=== PATIENT | male | born 1955 | race Caucasian/White ===

== ENCOUNTER → 2016-09-24 | Outpatient (CLI) | payer OTHER ==
[~2016-09-24] MED LIST: GADOBUTROL 10 MMOL/10 ML VIAL ONE; METF10002 PO; ROSU20TA PO; TELM1TAB3 PO; WARF7.5T6 PO
== END | disposition home or self-care (01) ==
LOC: CFH 08:14
PROVIDERS: ATTEND Family Medicine
DX: Z01.818 Encounter for other preprocedural examination (principal); D41.00 Neoplasm of uncertain behavior of unspecified kidney; K80.20 Calculus of gallbladder without cholecystitis without obstruction; N28.89 Other specified disorders of kidney and ureter; Q63.1 Lobulated, fused and horseshoe kidney; D18.03 Hemangioma of intra-abdominal structures; K86.89 Other specified diseases of pancreas; D73.4 Cyst of spleen
CPT/HCPCS: 71020; 74183; A9585

== ENCOUNTER → 2017-03-22 | Outpatient (CLI) | payer OTHER | LOC: RAD 10:57 | PROVIDERS: ATTEND Urology | DX: N28.89 Other specified disorders of kidney and ureter (principal); K80.20 Calculus of gallbladder without cholecystitis without obstruction; D18.03 Hemangioma of intra-abdominal structures; D73.4 Cyst of spleen; K76.89 Other specified diseases of liver | CPT/HCPCS: 74183; A9585 ==

== ENCOUNTER → 2019-04-10 | Outpatient (CLI) | payer OTHER ==
[~2019-04-10] MED LIST changes: -GADOBUTROL 10 MMOL/10 ML VIAL ONE; +OMNIPAQUE 350 MG/ML, 100ML BOTTLE ONE; -ROSU20TA PO; +ROSU20TA2 PO; +WARF7.5T46 PO; -WARF7.5T6 PO
== END | disposition home or self-care (01) ==
LOC: CFH 11:42
PROVIDERS: ATTEND Family Medicine
DX: D18.03 Hemangioma of intra-abdominal structures (principal); R12 Heartburn; K80.20 Calculus of gallbladder without cholecystitis without obstruction; M47.816 Spondylosis without myelopathy or radiculopathy, lumbar region; J98.4 Other disorders of lung; Z79.01 Long term (current) use of anticoagulants; Z80.0 Family history of malignant neoplasm of digestive organs; Z86.010 Personal history of colon polyps
CPT/HCPCS: 74170; 82565; Q9967

== ENCOUNTER 2020-05-09 14:56 | Outpatient (CLI) | payer OTHER ==
[~2020-05-09 14:56] MED LIST changes: -OMNIPAQUE 350 MG/ML, 100ML BOTTLE ONE
[2020-05-09] MEDS ORDERED: glipizide PO (15:18)
[2020-05-09] MEDS ORDERED: SITA100T PO (15:18)
[2020-05-09] MEDS ORDERED: lovenox SC (16:35)
[2020-05-09 16:46] LABS: MICROSCOPIC NOT IND
[2020-05-09 16:55] LABS: INTERNATIONAL NORMALIZED RATIO 1.77 (0.93-1.1); PROTHROMBIN TIME 18.7 Seconds (9.6-11.5)
[2020-05-09 16:58] LABS: ALANINE AMINOTRANSFERASE 30 U/L (12-78); ALBUMIN 4.6 g/dL (3.4-5.0); ANION GAP 8 mmol/L (5-15); CALCIUM 9.1 mg/dL (8.5-10.1); CHLORIDE 103 mmol/L (98-107); CREATININE 1.02 mg/dL (0.7-1.3)
[2020-05-09 17:01] LABS: ALKALINE PHOSPHATASE 56 U/L (45-117); TOTAL PROTEIN 7.9 g/dL (6.4-8.2)
[2020-05-09 17:06] LABS: BASOPHILS % (AUTO) 0 % (0-1); EOSINOPHILS % (AUTO) 0 % (1-7); LYMPHOCYTES % (AUTO) 34 % (22-44); MEAN CORPUSCULAR HEMOGLOBIN 30.3 pg (27.5-34.5); MEAN CORPUSCULAR HGB CONC 34.2 g/dL (33.2-36.2); MEAN PLATELET VOLUME 8.3 fL (7.4-10.4); MONOCYTES % (AUTO) 8 % (2-9); NEUTROPHILS % (AUTO) 57 % (42-75); PLATELET COUNT 286 x10^3/uL (130-400); RED BLOOD COUNT 4.87 x10^6/uL (4.38-5.82); RED CELL DISTRIBUTION WIDTH 13.4 % (9.4-14.8)
[2020-05-09 17:07] LABS: MD NO
== END 2020-05-09 23:59 | disposition home or self-care (01) ==
LOC: STAR 14:56
PROVIDERS: ATTEND Urology
DX: Z01.812 Encounter for preprocedural laboratory examination (principal); Z20.828 Contact with and (suspected) exposure to other viral communicable diseases; N28.1 Cyst of kidney, acquired
CPT/HCPCS: 80053; 81003; 83036; 85025; 85610; 87086; 87635; 93005

== ENCOUNTER 2020-05-15 10:07 | Inpatient (IN) | payer OTHER ==
[~2020-05-15] VITALS: Ht 176.5 cm; Wt 97.0 kg
[~2020-05-15 10:07] MED LIST changes: +CEFAZOLIN 1,000 MG ONE; +FENTANYL PF 250 MCG/5ML ONE; +GLYCOPYRROLATE 0.2MG/1ML, 5ML ONE; +MIDAZOLAM 1 MG/ML, 2ML ONE; +NEOSTIGMINE 1 MG/ML, 10ML ONE; +PROPOFOL 10 MG/ML, 20ML ONE; +ROCURONIUM 10MG/ML,5ML ONE; +SITA100T PO; +glipizide PO; +lovenox SC
[2020-05-15] MEDS ORDERED: CHLORHEXIDINE 15 ML UDC MM STA (10:23)
[2020-05-15] MEDS ORDERED: LACTATED RINGERS 1,000 ML IV SCH (10:30)
[2020-05-15 11:02] LABS: INTERNATIONAL NORMALIZED RATIO 1.06 (0.93-1.1); PROTHROMBIN TIME 11.2 Seconds (9.6-11.5)
[2020-05-15] MEDS ORDERED: INDIGO CARMINE 0.8%, 5ML ONE (12:28)
[2020-05-15] MEDS ORDERED: BUPIVACAINE/PF 0.25% ONE (12:28)
[2020-05-15] MEDS ORDERED: THROMBIN 5,000 UNIT VIAL TP ONE (12:29)
[2020-05-15] MEDS ORDERED: EPINEPHRINE 1 MG/ML, 1ML ONE (12:29)
[2020-05-15] MEDS ORDERED: hydrALAzine 20 MG/ML, 1ML IV PRN (13:00)
[2020-05-15] MEDS ORDERED: MEPERIDINE/PF 25MG/0.5ML IVPush PRN (13:00)
[2020-05-15] MEDS ORDERED: morphine SULFATE 10 MG/ML, 1ML IVPush PRN (13:00)
[2020-05-15] MEDS ORDERED: LABETALOL 5MG/ML, 20ML IV PRN (13:00)
[2020-05-15] MEDS ORDERED: ACETAMINOPHEN 325 MG TABLET PO PRN (13:00)
[2020-05-15] MEDS ORDERED: ONDANSETRON 2MG/ML, 2ML IVPush PRN (13:00)
[2020-05-15] MEDS ORDERED: OXYcodone 5 MG/5 ML ORAL.SOL UDC PO PRN (13:00)
[2020-05-15] MEDS ORDERED: FENTANYL PF 250 MCG/5ML ONE (13:50)
[2020-05-15] MEDS ORDERED: BUPIVACAINE/PF-EPI 0.25% 1:200K INFIL ONE (14:13)
[2020-05-15] MEDS ORDERED: HYDROmorphone 1 MG/ML, 1ML INJ ONE (15:35)
[2020-05-15] MEDS ORDERED: FENTANYL PF 100 MCG/2ML ONE (15:35)
[2020-05-15] MEDS ORDERED: OXYcodone 5 MG/5 ML ORAL.SOL UDC ONE (15:35)
[2020-05-15] MEDS: FENTANYL PF 100 MCG/2ML IV PRN ×2 (15:40→15:47)
[2020-05-15] MEDS: HYDROmorphone 1 MG/ML, 1ML INJ IVPush PRN ×2 (15:45→16:20)
[2020-05-15] MEDS ORDERED: MEPERIDINE/PF 25MG/ML,1ML ONE (15:59)
[2020-05-15] MEDS ORDERED: TEMAZEPAM 15 MG CAPSULE PO PRN (17:30)
[2020-05-15] MEDS ORDERED: ONDANSETRON 2MG/ML, 2ML IV PRN (17:30)
[2020-05-15] MEDS ORDERED: morphine SULFATE 10 MG/ML, 1ML IV PRN (17:30)
[2020-05-15] MEDS ORDERED: CEFAZOLIN PMX 1GM/50ML 50 ML IVPB SCH (18:00)
[2020-05-15 19:18] VITALS: BP 137/86
[2020-05-15] MEDS: HYDROcodone/APAP 5/325 TABLET PO PRN (20:17)
[2020-05-15] MEDS: CEFAZOLIN PMX 1GM/50ML 50 ML IVPB SCH (20:28)
[2020-05-15] MEDS ORDERED: ATORVASTATIN 80 MG TABLET PO SCH (21:00)
[2020-05-16 00:17] VITALS: BP 129/64
[2020-05-16] MEDS: SODIUM CHLORIDE 0.9% 1,000 ML IV SCH ×2 (01:37→14:20)
[2020-05-16 03:58] VITALS: BP 114/61
[2020-05-16] MEDS: CEFAZOLIN PMX 1GM/50ML 50 ML IVPB SCH (04:32)
[2020-05-16] MEDS: HYDROcodone/APAP 5/325 TABLET PO PRN (04:35)
[2020-05-16] MEDS ORDERED: ENOXAPARIN 40 MG/0.4 ML SQ SCH (07:00)
[2020-05-16 07:36] VITALS: BP 110/64
[2020-05-16] MEDS: metFORMIN 500 MG TABLET PO SCH ×2 (07:51→17:20)
[2020-05-16] MEDS ORDERED: GLIPizide ER 2.5 MG TABLET PO SCH (08:00)
[2020-05-16] MEDS ORDERED: HYDROCHLOROTHIAZIDE 12.5 MG CAPSULE PO SCH (09:00)
[2020-05-16] MEDS ORDERED: LINAGLIPTIN 5 MG TAB PO SCH (09:00)
[2020-05-16] MEDS ORDERED: LOSARTAN 100 MG TAB PO SCH (09:00)
[2020-05-16 13:28] VITALS: BP 117/74
== END 2020-05-16 19:12 | disposition home or self-care (01) | DRG 328 ==
LOC: ORIP 10:07 → 4NE 17:12
PROVIDERS: ADMIT Urology; ATTEND Urology
PROC: 8E0W4CZ Robotic Assisted Procedure of Trunk Region, Percutaneous Endoscopic Approach (ICD-10-PCS; 2020-05-15)
PROC: 0BQT4ZZ Repair Diaphragm, Percutaneous Endoscopic Approach (ICD-10-PCS; principal; 2020-05-15 12:00)
PROC: 0TB04ZZ Excision of Right Kidney, Percutaneous Endoscopic Approach (ICD-10-PCS; 2020-05-15 12:00)
DX: K42.9 Umbilical hernia without obstruction or gangrene (principal); N28.89 Other specified disorders of kidney and ureter; N28.1 Cyst of kidney, acquired
CPT/HCPCS: 36415; 82962; 85610; 85730; 86850; 86900; 88307; C1729; G0378; J0171; J0690; J1170; J1650; J2250; J2405; J2704; J2710; J3010; C1760; J7030; J7120

== ENCOUNTER 2020-05-19 19:46 | Emergency (ER) | payer OTHER ==
[~2020-05-19] VITALS: Ht 175.3 cm; Wt 91.5 kg
[~2020-05-19 19:46] MED LIST changes: -CEFAZOLIN 1,000 MG ONE; -FENTANYL PF 250 MCG/5ML ONE; -GLYCOPYRROLATE 0.2MG/1ML, 5ML ONE; -MIDAZOLAM 1 MG/ML, 2ML ONE; -NEOSTIGMINE 1 MG/ML, 10ML ONE; -PROPOFOL 10 MG/ML, 20ML ONE; -ROCURONIUM 10MG/ML,5ML ONE
--- NOTE | 2020-05-19 20:15 | NUR ---
PT STATES FEELINGURGE TO URINATE BUT ONLY BEING ABLE TO URINIATE 75ML AT A TIME AT HOME. PT URINATED TWICE BEFORE COMING IN AND BLADDER SCAN SHOWED 265 ML, AND PT IS ATTEMPTING TO URINATE WITH URINAL AT THIS TIME
--- NOTE | 2020-05-19 20:30 | NUR ---
PT URINATED 100 ML'S
[2020-05-19 21:09] VITALS: BP 123/68
[2020-05-19 21:22] LABS: MICROSCOPIC AUTO
== END 2020-05-19 22:00 | disposition home or self-care (01) ==
LOC: ED 21:30
DX: R33.8 Other retention of urine (principal); R39.15 Urgency of urination
CPT/HCPCS: 81001; 99284

== ENCOUNTER 2020-12-23 11:47 | Outpatient (CLI) | payer MEDICARE | END 2020-12-23 23:59 | disposition home or self-care (01) | LOC: CARD 11:47 | PROVIDERS: ATTEND Internal Medicine Cardiovascular Disease | DX: I47.2 Ventricular tachycardia (principal) | CPT/HCPCS: 93017 ==